=== PATIENT | male | born 1980 | race Caucasian/White ===

== ENCOUNTER 2019-01-14 12:56 | Emergency (ER) | payer BC ==
[~2019-01-14] VITALS: Ht 182.9 cm; Wt 100.0 kg
[2019-01-14 13:00] VITALS: BP 145/74
[2019-01-14] MEDS ORDERED: IBUP-1984 PO (13:55)
[2019-01-14] MEDS ORDERED: ibuprofen tablet 400 MG TABLET PO ONE (13:55)
== END 2019-01-14 14:15 | disposition home or self-care (01) ==
LOC: ER 12:57
DX: S63.591A Other specified sprain of right wrist, initial encounter (principal); X58.XXXA Exposure to other specified factors, initial encounter; Y93.89 Activity, other specified; Y92.89 Other specified places as the place of occurrence of the external cause; Y99.8 Other external cause status
CPT/HCPCS: 73110; 99283

== ENCOUNTER 2020-06-26 16:50 | Emergency (ER) | payer BC ==
[~2020-06-26] VITALS: Ht 182.9 cm; Wt 98.2 kg
[2020-06-26 16:54] VITALS: BP 173/90
[2020-06-26] MEDS ORDERED: HYDROcodone/acetaminophen 10/325mg tab PO ONE (19:10)
[2020-06-26] MEDS ORDERED: HYDR-3965 PO (20:24)
== END 2020-06-26 20:39 | disposition home or self-care (01) ==
LOC: ER 16:58
DX: S46.312A Strain of muscle, fascia and tendon of triceps, left arm, initial encounter (principal); M79.622 Pain in left upper arm; Z79.899 Other long term (current) drug therapy; X58.XXXA Exposure to other specified factors, initial encounter; Y93.89 Activity, other specified; Y92.89 Other specified places as the place of occurrence of the external cause; Y99.8 Other external cause status
CPT/HCPCS: 99283